=== PATIENT | male | born 1995 ===

== ENCOUNTER 2020-08-08 19:35 | Emergency (ER) | payer OTHER ==
[~2020-08-08] VITALS: Ht 167.6 cm; Wt 63.5 kg
== END 2020-08-08 21:49 | disposition home or self-care (01) ==
LOC: ER 19:35
DX: S61.221A Laceration with foreign body of left index finger without damage to nail, initial encounter (principal); W45.8XXA Other foreign body or object entering through skin, initial encounter; Y93.89 Activity, other specified; Y92.89 Other specified places as the place of occurrence of the external cause; Y99.8 Other external cause status